=== PATIENT | female | born 1995 | race African-American/Black ===

== ENCOUNTER 2019-05-14 05:55 | Emergency (ER) | payer SELFPAY ==
[2019-05-14] MEDS ORDERED: Ketorolac Tromethamine 60 MG/2 ML VIAL ONE (06:23)
[2019-05-14] MEDS ORDERED: Cyclobenzaprine 10 MG TAB ONE (06:23)
--- NOTE | 2019-05-14 07:10 | RAD ---
RADIOGRAPH CHEST 1 VIEW: DATE: 05/14/2019 HISTORY: 24-year-old female with chest pain FINDINGS: The visualized lung roberts are clear. The cardiomediastinal silhouette and hilar shadows are normal. The lateral costophrenic angles are sharp. The osseous structures appear normal. There is no pneumothorax. IMPRESSION: Negative.
--- NOTE | 2019-05-17 12:45 | EKG ---
Test Reason : Blood Pressure : / mmHG Vent. Rate : 086 BPM Atrial Rate : 086 BPM P-R Int : 154 ms QRS Dur : 086 ms QT Int : 388 ms P-R-T Axes : 066 041 -48 degrees QTc Int : 464 ms Normal sinus rhythm T wave abnormality, consider inferolateral ischemia Prolonged QT Abnormal ECG Confirmed by VINAY CISNEROS D.O. ([id number]), editor news CARA CERNA ([id number]) on 05/17/2019 12:44:57 PM Referred By: Confirmed By:VINAY CISNEROS D.O.
== END 2019-05-14 06:57 | disposition home or self-care (01) ==
LOC: ERS 05:55
DX: M94.0 Chondrocostal junction syndrome [Tietze] (principal); F17.210 Nicotine dependence, cigarettes, uncomplicated
CPT/HCPCS: 71045; 93005; 94760; 96372; J1885

== ENCOUNTER 2019-06-11 08:19 | Emergency (ER) | payer BC, SELFPAY ==
[2019-06-11 09:17] LABS: #Eosinphils 0.1 thou/uL (0.0-0.7); #Lymphocytes 1.9 thou/uL (1.20-3.40); #Monocytes 0.4 thou/uL (0.11-0.59); #Neutrophils 5.1 thou/uL (1.40-6.50); %Basophils 0.7 % (0.0-1.0); %Eosinophils 1.1 % (0.0-10.0); %Lymphocytes 24.8 % (21.0-51.0); %Monocytes 5.5 % (0.0-10.0); %Neutrophils 67.9 % (42.0-75.0); Hemoglobin 11.8 g/dL (12.0-16.0); Mean Corpuscular HGB CONC 32.6 g/dL (32.0-36.0); Mean Corpuscular Hemoglobin 30.6 pg (27.0-31.0); Mean Corpuscular Volume 93.9 fL (78.0-98.0); Mean Platelet Volume 7.4 fL (7.4-10.4); Platelet Count 272 thou/uL (130-400); RBC Distribution Width 11.3 % (11.5-14.5); Red Blood Cell (RBC) Count 3.85 mill/uL (4.20-5.40); White Blood Cell (WBC) Count 7.5 thou/uL (4.8-10.8)
[2019-06-11] MEDS ORDERED: Ondansetron PF 4 MG/2 ML Vial ONE (09:24)
[2019-06-11] MEDS ORDERED: Ketorolac Tromethamine 30 MG/ML VIAL ONE (09:24)
[2019-06-11 09:34] LABS: ALT (SGPT) 14 U/L (8-55); AST (SGOT) 18 U/L (5-34); Albumin 4.6 g/dL (3.5-5.0); Alkaline Phosphatase 49 U/L (40-110); Anion Gap 14 mmol/L (10-20); BUN (Urea Nitrogen) 9 mg/dL (7.0-18.7); Bilirubin, Total 0.3 mg/dL (0.2-1.2); Calc. Creatinine Clearance 0 mL/min (70-130); Calcium 9.8 mg/dL (7.8-10.44); Carbon Dioxide 20 mmol/L (22-29); Chloride 108 mmol/L (98-107); Estimated GFR-MDRD Greater than 90; Globulin 2.9 g/dL (2.4-3.5); Glucose 112 mg/dL (70-105); Potassium 3.3 mmol/L (3.5-5.1); Protein, Total 7.5 g/dL (6.0-8.3); Sodium 139 mmol/L (136-145)
[2019-06-11 10:09] LABS: Bacteria/HPF 3+ HPF (None Seen); Bilirubin Negative (Negative); Blood, Urine 2+ (Negative); Clarity Turbid (Clear); Glucose, Urine (Dipstick) Normal (Negative); Leukocyte 75 Leu/uL (Negative); Nitrite Negative (Negative); Pregnancy Test - Urine (BHCG) Negative (Negative); Pregu Control Background? CLEAR/WHITE (CLR/WHITE); Pregu Control Bar Appear? YES (CONTROL BAR); Protein, Urine (Dipstick) 10 mg/dL (Neg-Trace); Specific Gravity 1.021 (1.002-1.036); Squamous Epithelial 0-3 HPF (0-3); Urobilinogen Normal mg/dL (Less than 2); WBC/HPF 0-3 HPF (0-3)
--- NOTE | 2019-06-11 11:39 | ULT ---
PELVIC ULTRASOUND: Date: 06/11/19 COMPARISON: None. HISTORY: Pelvic pain. TECHNIQUE: Multiplanar Salazar scale and color Doppler images were obtained in a transabdominal and transvaginal pe lvic ultrasound. Spectral analysis with Doppler waveforms of the ovaries performed. FINDINGS: An IUD is seen within the uterus. There is a possible fibroid in the uterus along the right aspect me asuring 2.1 cm in greatest dimension. No other uterine abnormality is seen. No free fluid is seen in the pelvis. Both ovaries are normal in size and appearance and demonstrate n ormal internal flow. IMPRESSION: 1. Possible uterine fibroid. 2. IUD located in the uterus. POS: [facility]
== END 2019-06-11 12:18 | disposition home or self-care (01) ==
LOC: ERS 08:19
DX: D25.9 Leiomyoma of uterus, unspecified (principal); F17.210 Nicotine dependence, cigarettes, uncomplicated; Z79.899 Other long term (current) drug therapy
CPT/HCPCS: 36415; 76856; 80053; 81003; 81015; 81025; 85025; J1885; J2405